=== PATIENT | female | born 1965 | race Caucasian/White ===

== ENCOUNTER → 2021-12-27 10:21 | Outpatient (BNVA) | payer SELFPAY | PROVIDERS: Visit Provider Nurse Practitioner Family | DX: M79.89 Other specified soft tissue disorders (principal); S99.922A Unspecified injury of left foot, initial encounter; X58.XXXA Exposure to other specified factors, initial encounter | CPT/HCPCS: 73630; 80053; 85025 ==

== ENCOUNTER 2022-02-27 12:18 | Emergency (ER) | payer SELFPAY ==
[2022-02-27 14:16] VITALS: BP 135/78; PULSE 84; RESP 15; TEMP 36.7; O2SAT 97
--- NOTE | 2022-02-27 15:33 | XRR_ITS ---
PROCEDURE INFORMATION: Exam: XR Left Foot Exam date and time: 02/27/2022 4:19 PM Age: 56 years old Clinical indication: Injury or trauma; Other: History--palet fell on patient's foot 4 months ago; Blunt trauma; Left; Additional info: Wound TECHNIQUE: Imaging protocol: Radiologic exam of the Left foot. Views: 3 or more views. COMPARISON: CR XR foot LT min 3V* [id number] 12/27/2021 10:21 AM FINDINGS: Bones/joints: Small calcaneal enthesophytes. Mild diffuse DJD. No acute fracture or foreign body noted. Unchanged old deformity at base of 1st distal phalanx. Soft tissues: Normal. XR/XR foot LT min 3V* [id number] IMPRESSION: No acute findings.
--- NOTE | 2022-02-27 17:18 | W.ED.EXTPRO ---
HPI - Extremity Problem General: Chief complaint: Extremity Problem,Nontraumatic Stated complaint: left foot pain, possible infection Time Seen by Provider: 02/27/22 15:14 History of Present Illness: Patient is a 56-year-old female that presents to the emergency department with complaints of left foot pain. Onset of symptoms approximately 3 months ago when she dropped a pallet on her foot. Since that time she notes infectious process started and she has taken multiple antibiotics that she has prescribed herself. She is obtaining these prescriptions from a feed store. She reports she has been taking cephalexin, Cipro, and azithromycin. Since erythema, swelling, pain has all increased. She is swollen and has some erythema and warmth to the skin. She has a open wound over the fourth metatarsal bone. She states she has been opening the wound to relieve pressure in her foot. She has been doing this with a straight blade Associated symptoms: Deny chest pain, fever(s) or rash Review of Systems General: Reports: 10 or more systems reviewed and unremarkable except in HPI and below Const: Denies: fever(s), chills, change in appetite, change in weight, fatigue or malaise Eyes: Denies: change in vision, eye discomfort, eye discharge or eye redness ENMT: Denies: throat pain, enlarged tonsils, odynophagia, hoarseness, ear or mastoid pain, ear discharge, change in hearing, tinnitus, nasal discharge, nasal congestion, post nasal drip or sinus pain Card: Denies: chest pain, palpitations, irregular heart rhythm, edema, dyspnea on exertion, orthopnea or leg pain with exertion Resp: Denies: dyspnea, productive cough, non-productive cough, wheezing, stridor or chest congestion GI: Denies: abdominal pain, nausea, vomiting, dysphagia, diarrhea, constipation, bloating, GI cramping or hematochezia : Denies: flank pain, difficulty voiding, dysuria, urinary frequency, urinary urgency, urinary hesitancy, oliguria or hematuria Musc: Denies: neck pain, back pain, extremity pain, joint pain, joint swelling, joint redness, joint warmth or muscle weakness Skin/Breast: Denies: rash, pruritus, erythema, photosensitivity or new lesions Neuro: Denies: headache(s), numbness in extremities, weakness in extremities, sensory changes, lack of coordination, difficulty walking, frequent falls, dizziness, confusion, Slurred speech present, difficulty communicating thoughts, seizure-like activity or involuntary movements Endo: Denies: polyuria, polydipsia or tired all the time Malcom/Lymph: Denies: easy bruising or easy bleeding PFSH ED PFSH: Social History Smoking and tobacco status: current every day smoker Second hand smoke exposure: No Smoking risk assessment/counseling performed?: No Alcohol intake: never Desire information about alcohol rehabilitation?: No Counseling given: No Desire information about substance/drug rehabilitation?: No Counseling given: No Adopted: No Caregiver/support person: No Lives independently: Yes Household members: spouse Housing: House Marital status: Single Number of children: 2 service: No Current occupational status: employed History of recent travel: No Physical Exam Const: COMMON NORMALS: no acute distress, average body habitus, patient oriented x3, no limitations, healthy appearing, alert and well nourished GENERAL APPEARANCE: cooperative, comfortable and well developed; not in distress and not anxious ORIENTATION/CONSCIOUSNESS: Yes awake, Yes oriented to person, Yes oriented to place and Yes oriented to time HENMT: COMMON NORMALS: normocephalic, atraumatic, hearing grossly normal bilaterally, external ears normal, EAC's normal, TM's normal bilaterally, Normal external nose present and Normal nasal mucous membranes and turbinates present HEAD & SCALP: normal to inspection, normocephalic and atraumatic FACE & SINUS: normal facial exam and face symmetric NOSE: Normal external nose present, Normal nares present and Normal nasal mucous membranes and turbinates present GENERAL EAR: hearing not grossly impaired EXTERNAL EAR: Yes external ears normal and Yes no periauricular adenopathy EXTERNAL AUDITORY CANAL: EAC's normal TYMPANIC MEMBRANE: TM's normal bilaterally MOUTH: Normal oral and palatal mucosa present, lip normal, tongue normal and Normal salivary glands and ducts present THROAT: posterior oropharynx normal, tonsils normal and uvula midline Eye: COMMON NORMALS: Equal, round and reactive pupils present, EOMs intact bilaterally, conjunctivae normal, no scleral icterus and no papilledema GENERAL EYE: appearance normal, both eyes and all related structures ALIGNMENT: Yes alignment normal PERIORBITAL: periorbital findings normal EYELID: eyelids normal CONJUNCTIVA: Yes conjunctivae normal PUPIL: Yes Equal, round and reactive pupils present DIRECT OPHTHALMOSCOPY: Yes no papilledema Neck/C-Spine: COMMON NORMALS: full ROM, supple, no meningeal signs and no JVD GENERAL: Yes normal visual inspection CERVICAL SPINE: Yes cervical ROM normal Lymph: LYMPHATIC: no lymphadenopathy noted Chest: COMMONS NORMALS: normal inspection of the chest Breast/axilla inspection: Yes no chest deformity, asymmetry, normal contours, no nodules, masses, tenderness Resp: COMMON NORMALS: normal respiratory effort, No retractions, No use of accessory muscles and clear to auscultation bilaterally EFFORT & INSPECTION: Yes able to speak in complete sentences, Yes symmetric chest movement, No abnormal respiratory pattern, No tachypneic and No respiratory distress AUSCULTATION: clear to auscultation bilaterally Cardio: COMMON NORMALS: no JVD, regular rate, regular rhythm and Peripheral pulses 2+ throughout RATE: regular rate RHYTHM: regular rhythm PERIPHERAL PULSES: Peripheral pulses 2+ throughout GI: COMMON NORMALS: Normal to inspection, nondistended, normoactive bowel sounds present, Soft to palpation and non-tender INSPECTION: Yes normal to inspection PALPATION: Yes Soft to palpation : COMMON NORMALS: Yes no CVA tenderness BLADDER/KIDNEY EXAM: Yes no CVA tenderness and Yes CVA tenderness Back/Pelvis: COMMON NORMALS: no CVA tenderness, thoracic and lumbar spine normal to inspection, no thoracic nor lumbar tenderness, thoraco-lumbar ROM normal and straight leg raise negative bilaterally GENERAL BACK: Yes CVA tenderness and No ecchymosis THORACIC SPINE/UPPER BACK: Yes normal to inspection LUMBAR SPINE/LOWER BACK: Yes normal to inspection and Yes straight leg raise negative bilaterally Extremity: COMMON NORMALS: normal to inspection, full ROM and capillary refill normal NARRATIVE EXTREMITY EXAM: Left lower extremity: Skin is dirty erythematous and warm. Edema present. Patient is able to dorsiflex plantarflex the foot Able to dorsiflex great toe Sensation intact light touch medial, lateral, dorsal, plantar surface of the foot and first webspace DP pulses palpable and cap refills less than 3 seconds Patient reports pain with bearing. GENERAL: Yes normal exam except as noted Neuro: COMMON NORMALS: patient oriented x3 SENSORIUM/ORIENTATION: Yes alert, Yes oriented to person, Yes oriented to place and Yes oriented to time MENINGEAL SIGNS: Yes no meningeal signs Psych: COMMON NORMALS: mental status grossly normal, Normal thought process present, cooperative, normal affect, speech normal and activity/motor behavior normal SPEECH: Yes normal speech THOUGHT PROCESS: Normal thought process present Skin: COMMON NORMALS: no rashes or lesions noted, no wounds, turgor normal, no jaundice, no petechiae and no mottling GENERAL SKIN EXAM: no rashes or lesions noted and turgor normal Course Vital Signs: Vital signs: Vital Signs Temperature 98.1 F 02/27/22 14:16 Pulse Rate 84 02/27/22 14:16 Respiratory Rate 15 02/27/22 14:16 Blood Pressure 135/78 02/27/22 14:16 Pulse Oximetry 97 02/27/22 14:16 Oxygen Delivery Me thod 02/27/22 14:16 MDM - Extremity (Nontraumatic) Medical Decision Making Ricky decision making?patient was evaluated in the emergency department. Has had history of foot trauma. Was evaluated initially and no fractures were identified. Patient reports that she developed an infection back in November or December. She is taken multiple antibiotics on her own. Her differential diagnosis would include open fracture, fracture, cellulitis, abscess, osteomyelitis. Patient is undergone XR imaging of her foot here in the emergency department and no acute findings are present. I did begin to antibiotics?I started with IV cefazolin. Patient will go home on doxycycline. Patient is given instructions to keep her foot clean and dry. She is to wash twice daily. She is to wear clean socks. Patient is to obtain primary care services and to return here as needed for new, concerning, worsening symptoms. Lab Data Radiology Impressions Foot X-Ray 02/27/22 15:33 IMPRESSION: No acute findings. Imaging Data Xray Ortho: My impression: XR left foot reveals no acute findings. Discharge Plan Discharge Patient Disposition: Home Clinical Impression: Cellulitis Condition: Stable Prescriptions: New doxycycline hyclate 100 mg tablet 100 mg PO BID 7 Days Qty: 14 0RF No Action cephalexin 500 mg capsule 500 mg PO TID Qty: 21 0RF Discharge Orders: Discharge ED (Routine); Ordered 02/27/22 Ordered By: Lilly Rosario Referrals: Danyelle Alfaro FNP-C [Primary Care Provider] - Discharge Diet: Advance as tolerated Discharge Activity: Resume usual activity Patient Instructions: Opioid Safety, Pain Management, Cefazolin (By injection), Doxycycline (By mouth), Cellulitis (ED) Activity Restrictions/Additional Instructions: Please return to the emergency department for new, concerning, worsening symptoms I want you to wash her feet twice a day Wear clean socks Elevate the extremity to relieve some of the inflammation Ibuprofen for inflammation Ice for inflammation antibiotics?doxycycline only. Do not take other medications that are not prescribed by a medical provider. Establish primary care Coding Level of Care Code ED Button Sawyer for Janelleg Fwd History Expanded Problem Focused Exam Expanded Problem Focused Medical Decision Making Low Complexity
[2022-02-27] MEDS: ceFAZolin 1,000 MG in sodium chloride 0.9% (plus) 50 ML 100 MG IV (17:41)
[2022-02-27 18:19] VITALS: BP 113/78; PULSE 76; RESP 14; O2SAT 96
== END 2022-02-27 18:14 | disposition home or self-care (01) ==
PROVIDERS: Emergency Provider Nurse Practitioner; PCP Nurse Practitioner Family
DX: L03.116 Cellulitis of left lower limb (principal); F17.210 Nicotine dependence, cigarettes, uncomplicated
CPT/HCPCS: 73630; 96365; 99284; J0690

== ENCOUNTER 2022-03-03 11:36 | Emergency (ER) | payer SELFPAY ==
[2022-03-03 11:44] VITALS: BP 127/70; PULSE 77; RESP 18; TEMP 36.6; O2SAT 98; BMI 22.4
[2022-03-03 11:48] VITALS: PULSE 74; RESP 16; O2SAT 96
--- NOTE | 2022-03-03 12:15 | XR_ITS ---
WS: [id number] Left foot, 3 views, 03/03/2022 Clinical Data: concern for osteo Comparison: Left foot, 02/27/2022 Findings: No fractures or dislocations are seen. No bone destruction or erosion is noted. The joint spaces and soft tissues are normal. The deformity of the left first toe distal phalanx remains the same. There is a plantar spur and an A chilles spur. XR/XR foot LT min 3V* [id number] Impression: Negative left foot.
--- NOTE | 2022-03-03 12:21 | ED_ITS ---
HPI - Skin/Abscess/Foreign Bdy General: Chief complaint: Skin/Abscess/Foreign Body Stated complaint: left foot infection, not improving Time Seen by Provider: 03/03/22 11:52 History of Present Illness: Patient comes in with redness, swelling, pain of her left foot. States that she dropped a pallet on it a couple months ago and has been dealing with infection off and on since then. States that she has been on antibiotics for different times including Bactrim, Keflex, doxycycline, and amoxicillin. States that she was seen here 4 days ago at which time she had an x-ray and was started on doxycycline. Associated symptoms: Deny fever(s), nausea or vomiting Review of Systems Const: Denies: fever(s) or body aches Eyes: Denies: change in vision or blurry vision ENMT: Denies: throat pain or odynophagia Card: Denies: chest pain or palpitations Resp: Denies: dyspnea or productive cough GI: Denies: abdominal pain, nausea or vomiting : Denies: flank pain or dysuria Musc: Denies: neck pain or back pain Skin/Breast: Denies: rash or pruritus Neuro: Denies: headache(s) or numbness in extremities Psych: Denies: anxiety or change in appetite Endo: Denies: polyuria or excessive sweating PFSH ED 2 PFSH: Social History Smoking and tobacco status: current every day smoker Second hand smoke exposure: No Smoking risk assessment/counseling performed?: No Alcohol intake: never Desire information about alcohol rehabilitation?: No Counseling given: No Desire information about substance/drug rehabilitation?: No Counseling given: No Adopted: No Caregiver/support person: No Lives independently: Yes Household members: spouse Housing: House Marital status: Single Number of children: 2 service: No Current occupational status: employed History of recent travel: No Physical Exam Const: COMMON NORMALS: no acute distress, patient oriented x3, healthy appearing and alert HENMT: COMMON NORMALS: normocephalic and atraumatic HEAD & SCALP: normocephalic and atraumatic Eye: COMMON NORMALS: Equal, round and reactive pupils present and EOMs intact bilaterally PUPIL: Yes Equal, round and reactive pupils present Neck/C-Spine: COMMON NORMALS: full ROM and supple Resp: COMMON NORMALS: normal respiratory effort, No retractions and No use of accessory muscles Cardio: COMMON NORMALS: regular rate and regular rhythm RATE: regular rate RHYTHM: regular rhythm GI: COMMON NORMALS: Normal to inspection, nondistended, normoactive bowel sounds present, Soft to palpation and non-tender PALPATION: Yes Soft to palpation Back/Pelvis: COMMON NORMALS: thoracic and lumbar spine normal to inspection and no thoracic nor lumbar tenderness Extremity: COMMON NORMALS: full ROM OTHER: healing ulcerating wound on the top of her left foot. She has discoloration and erythema that is hot to touch and swelling of her left foot extending up to her ankle. Neuro: COMMON NORMALS: patient oriented x3 SENSORIUM/ORIENTATION: Yes alert Psych: COMMON NORMALS: mental status grossly normal and cooperative Course Vital Signs: Vital signs: Vital Signs Temperature 98 F 03/03/22 11:44 Pulse Rate 77 03/03/22 11:44 Respiratory Rate 18 03/03/22 11:44 Blood Pressure 127/70 03/03/22 11:44 Pulse Oximetry 98 03/03/22 11:44 Oxygen Delivery Me thod 03/03/22 11:44 MDM - Skin/Abscess/Foreign Bdy Medicial Decision Making Patient comes in with redness, swelling, pain of her left foot. States that she dropped a pallet on it a couple months ago and has been dealing with infection off and on since then. States that she has been on antibiotics for different times including Bactrim, Keflex, doxycycline, and amoxicillin. States that she was seen here 4 days ago at which time she had an x-ray and was started on doxycycline. On physical exam she has a healing ulcerating wound on the top of her left foot. She has discoloration and erythema that is hot to touch and swelling of her left foot extending up to her ankle. She denies any fever, or other symptoms. We will check labs, x-ray, and reassess. On reassessment I talked to the patient about the test results. Her vital signs and her labs are unremarkable. Given that she will occasionally stick a needle in to pop which she feels like is hematoma under the skin I wonder if this is why it keeps getting infected. I talked to her about not poking any foreign bodies into the skin. We will place her on Bactrim double strength 2 tablets twice a day as well as cephalexin together for 10 days. Will discharge with precautions to return for worsening or changing symptoms. Lab Data 03/03/22 12:50 03/03/22 12:50 Radiology Impressions Foot X-Ray 03/03/22 12:15 Impression: Negative left foot. Laboratory Results WBC 5.7 10^3/uL (4.0-10.0) 03/03/22 12:50 RBC 3.98 10^6/uL (4.1-5.3) L 03/03/22 12:50 Hgb 13.1 g/dL (11.5-15.3) 03/03/22 12:50 Hct 38.7 % (37.0-47.0) 03/03/22 12:50 MCV 97.2 fl (81-99) 03/03/22 12:50 MCH 32.9 pg (28.0-34.0) 03/03/22 12:50 MCHC 33.9 g/dL (30.0-36.0) 03/03/22 12:50 RDW 11.9 % (12.1-15.1) L 03/03/22 12:50 Plt Count 243 10^3/cmm (130-400) 03/03/22 12:50 MPV 9.7 fL (7.4-10.4) 03/03/22 12:50 Neut % (Auto) 62.5 % 03/03/22 12:50 Lymph % (Auto) 27.8 % 03/03/22 12:50 Leake % (Auto) 5.6 % 03/03/22 12:50 Eos % (Auto) 3.2 % 03/03/22 12:50 Baso % (Auto) 0.7 % 03/03/22 12:50 Neut # (Auto) 3.56 10^3/uL (1.8-7.7) 03/03/22 12:50 Lymph # (Auto) 1.6 10^3/uL (0.8-4.8) 03/03/22 12:50 Leake # (Auto) 0.3 10^3/uL (0.2-0.9) 03/03/22 12:50 Eos # (Auto) 0.2 10^3/uL (0.0-0.8) 03/03/22 12:50 Baso # (Auto) 0.0 10^3/uL (0.0-0.1) 03/03/22 12:50 Nucleated RBC % (auto) 0 % 03/03/22 12:50 Nucleated RBCs # 0.0 /100WBC 03/03/22 12:50 Sodium 138 mmol/L (136-145) 03/03/22 12:50 Potassium 3.9 mmol/L (3.5-5.1) 03/03/22 12:50 Chloride 102 mmol/L (98-107) 03/03/22 12:50 Carbon Dioxide 28 mmol/L (22-29) 03/03/22 12:50 Anion Gap 11.9 (5-19) 03/03/22 12:50 BUN 6 mg/dL (6-20) 03/03/22 12:50 Creatinine 0.6 mg/dL (0.5-0.9) 03/03/22 12:50 GFR Calculation 103.0 mL/min (90-130) 03/03/22 12:50 Glucose 101 mg/dL (65-115) 03/03/22 12:50 Calculated Osmolality 284 mOsm/kg (285-295) L 03/03/22 12:50 Lactate 1.1 mmol/L (0.5-2.2) 03/03/22 12:50 Calcium 9.6 mg/dL (8.5-10.5) 03/03/22 12:50 Total Bilirubin 0.2 mg/dL (0.15-1.2) 03/03/22 12:50 AST 17 U/L (0-32) 03/03/22 12:50 ALT 12 U/L (0-33) 03/03/22 12:50 Alkaline Phosphatase 89 U/L (35-105) 03/03/22 12:50 Total Protein 7.3 g/dL (6.6-8.7) 03/03/22 12:50 Albumin 4.3 g/dL (3.5-5.2) 03/03/22 12:50 Globulin 3.0 g/dL (1.3-4.6) 03/03/22 12:50 Discharge Plan Discharge Patient Disposition: Home Clinical Impression: Cellulitis Condition: Stable Prescriptions: New Bactrim DS 800-160 mg tablet 2 tab PO DAILY 10 Days Qty: 40 0RF cephalexin 500 mg capsule 500 mg PO Q6H 10 Days Qty: 40 0RF No Action cephalexin 500 mg capsule 500 mg PO TID Qty: 21 0RF doxycycline hyclate 100 mg tablet 100 mg PO BID 7 Days Qty: 14 0RF Discharge Orders: Discharge ED (Routine); Ordered 03/03/22 Ordered By: Guru Whitaker Referrals: Danyelle Alfaro FNP-C [Primary Care Provider] - Patient Instructions: Cellulitis Coding Level of Care Code ED Board Lining Machine Operator for Chg Fwd Exam Comprehensive
[2022-03-03 13:00] VITALS: BP 93/53; PULSE 59; RESP 16; O2SAT 97
[2022-03-03 13:16] LABS: Basophils % 0.7 %; Eosinophils # 0.2 10^3/uL (0.0-0.8); Eosinophils % 3.2 %; Hematocrit 38.7 % (37.0-47.0); Hemoglobin 13.1 g/dL (11.5-15.3); Lymphocytes # 1.6 10^3/uL (0.8-4.8); Lymphocytes % 27.8 %; Mean Corpuscular HGB Conc 33.9 g/dL (30.0-36.0); Mean Corpuscular Hemoglobin 32.9 pg (28.0-34.0); Mean Corpuscular Volume 97.2 fl (81-99); Mean Platelet Volume 9.7 fL (7.4-10.4); Monocytes # 0.3 10^3/uL (0.2-0.9); Monocytes % 5.6 %; Neutrophils # 3.56 10^3/uL (1.8-7.7); Neutrophils % 62.5 %; Nucleated Red Blood Cells % 0 %; Platelet Count 243 10^3/cmm (130-400); Red Blood Count 3.98 10^6/uL (4.1-5.3); Red Cell Distribution Width 11.9 % (12.1-15.1); White Blood Count 5.7 10^3/uL (4.0-10.0)
[2022-03-03 13:20] LABS: Alanine Aminotransferase 12 U/L (0-33); Albumin Level 4.3 g/dL (3.5-5.2); Alkaline Phosphatase 89 U/L (35-105); Anion Gap 11.9 (5-19); Aspartate Amino Transferase 17 U/L (0-32); Blood Urea Nitrogen 6 mg/dL (6-20); Calcium 9.6 mg/dL (8.5-10.5); Carbon Dioxide 28 mmol/L (22-29); Chloride 102 mmol/L (98-107); Glucose 101 mg/dL (65-115); Osmolality Calculated 284 mOsm/kg (285-295); Potassium 3.9 mmol/L (3.5-5.1); Sodium 138 mmol/L (136-145); Total Bilirubin 0.2 mg/dL (0.15-1.2); Total Protein 7.3 g/dL (6.6-8.7)
[2022-03-03 13:21] LABS: Lactate (Lactic Acid level) 1.1 mmol/L (0.5-2.2)
[2022-03-03 13:48] VITALS: BP 108/65; PULSE 54; RESP 16; O2SAT 99
[2022-03-03 14:46] VITALS: BP 93/59; PULSE 51; RESP 16; O2SAT 98
== END 2022-03-03 14:40 | disposition home or self-care (01) ==
PROVIDERS: Emergency Provider Emergency Medicine; PCP Nurse Practitioner Family
DX: L03.116 Cellulitis of left lower limb (principal); F17.210 Nicotine dependence, cigarettes, uncomplicated
CPT/HCPCS: 36415; 73630; 80053; 83605; 85025; 87040; 99284

== ENCOUNTER 2022-09-07 12:16 | Inpatient (IN) | payer MEDICAID, SELFPAY ==
[2022-09-07 12:22] VITALS: BP 112/59; PULSE 62; RESP 18; TEMP 36.6; O2SAT 97; BMI 21.8
--- NOTE | 2022-09-07 12:23 | XRR_ITS ---
PROCEDURE INFORMATION: Exam: XR Left Hip Exam date and time: 09/07/2022 12:42 PM Age: 57 years old Clinical indication: Injury or trauma; Fall; Blunt trauma (contusions or hematomas); Left; Hip; Additional info: Fall, pain TECHNIQUE: Imaging protocol: Radiologic exam of the left hip. Views: 2 or 3 views hip with pelvis when performed. COMPARISON: No relevant prior studies available. FINDINGS: Bones/joints: Unremarkable. No acute fracture. Soft tissues: Unremarkable. XR/XR hip LT 2-3V wo/w pel* [id number] IMPRESSION: No acute findings.
[2022-09-07] MEDS: fentaNYL 50 mcg/mL INJ 2mL IVP (12:35)
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
--- NOTE | 2022-09-07 13:27 | CT_ITS ---
WS: [id number] NONCONTRAST CT LEFT HIP TECHNIQUE: Noncontrast CT LEFT hip with coronal and sagittal reformatted images. CLINICAL INFORMATION: fall, pain, no visible fracture on plain film COMPARISON: None. DLP: 469.[address] scans at [facility] use at least one of these dose optimization techniques: automated e xposure control; mA and/or kV adjustment per patient size (includes targeted exams where dose is matc hed to clinical indication); or iterative reconstruction. FINDINGS: Nondisplaced complete transcervical LEFT femoral neck fracture extending into the subcapital femoral neck. No significant displacement. No dislocation. Acetabulum is normal in appearance. Normal pubic r ami. Small joint effusion. LEFT superior and inferior pubic rami appear normal. Normal visualized sig moid colon. Subcutaneous edema in the LEFT gluteus. CT/CT hip LT wo con* [id number] IMPRESSION: 1. Acute transcervical and subcapital LEFT femoral neck fracture with no signi ficant displacement. No dislocation. 2. Acetabulum is normal in appearance. 3. Pubic rami appear intact. 4. Small joint effusion with soft tissue edema. Notified Shoshana Sylvester MD at 09/07/2022 2:07 PM.
--- NOTE | 2022-09-07 15:38 | ECG_ITS ---
[facility] Test Date: 2022-09-07 Pat Name: Emma Cabrales Department: Room: 276 Gender: Female Jigmaker: : 1965 Requested By: Shoshana Hess Order Number: [id number] Nirmal MD: Cory Catalan M.D. Measurements Intervals Star Rate: 53 P: 74 CA: 194 QRS: 78 QRSD: 122 T: 63 QT: 485 QTc: 457 Interpretive Statements SINUS BRADYCARDIA POSSIBLE LEFT ATRIAL ENLARGEMENT [-0.1mV P-WAVE IN V1/V2] POSSIBLE RIGHT VENTRICULAR CONDUCTION DELAY [RSR (QR) IN V1/V2] No previous ECG available for comparison Electronically Signed On 09-07-2022 15:50:37 CDT by Cory Catalan M.D. [email or web address]
[2022-09-07 15:42] VITALS: BP 114/73; PULSE 60; RESP 18; O2SAT 98
[2022-09-07 16:47] VITALS: RESP 18
[2022-09-07 16:47] LABS: Basophils % 0.5 %; Eosinophils # 0.1 10^3/uL (0.0-0.8); Eosinophils % 0.7 %; Hematocrit 36.4 % (37.0-47.0); Lymphocytes # 1.4 10^3/uL (0.8-4.8); Lymphocytes % 16.6 %; Mean Corpuscular Hemoglobin 32.4 pg (28.0-34.0); Mean Corpuscular Volume 98.4 fl (81-99); Mean Platelet Volume 9.7 fL (7.4-10.4); Monocytes # 0.8 10^3/uL (0.2-0.9); Monocytes % 8.8 %; Neutrophils # 6.33 10^3/uL (1.8-7.7); Neutrophils % 73.2 %; Nucleated Red Blood Cells % 0 %; Platelet Count 183 10^3/cmm (130-400); Red Cell Distribution Width 12.7 % (12.1-15.1); White Blood Count 8.6 10^3/uL (4.0-10.0)
[2022-09-07] MEDS: morphine 4 mg/mL SDV 1 mL 2 MG IVP (16:47)
[2022-09-07 16:51] LABS: INR 1.01 (0.8-1.2)
[2022-09-07 16:56] LABS: Alanine Aminotransferase 10 U/L (0-33); Albumin Level 3.7 g/dL (3.5-5.2); Alkaline Phosphatase 76 U/L (35-105); Aspartate Amino Transferase 16 U/L (0-32); Blood Urea Nitrogen 8 mg/dL (6-20); Calcium 8.6 mg/dL (8.5-10.5); Carbon Dioxide 24 mmol/L (22-29); Chloride 105 mmol/L (98-107); Globulin 2.5 g/dL (1.3-4.6); Glomerular Filtration Rate 102.7 mL/min (90-130); Glucose 95 mg/dL (65-115); Osmolality Calculated 288 mOsm/kg (285-295); Sodium 140 mmol/L (136-145); Total Bilirubin 0.5 mg/dL (0.15-1.2); Total Protein 6.2 g/dL (6.6-8.7)
--- NOTE | 2022-09-07 17:00 | XRR_ITS ---
PROCEDURE INFORMATION: Exam: XR Chest Exam date and time: 09/07/2022 5:06 PM Age: 57 years old Clinical indication: Injury or trauma; Fall; Additional info: Preop TECHNIQUE: Imaging protocol: Radiologic exam of the chest. Views: 1 view. COMPARISON: No relevant prior studies available. FINDINGS: Lungs: Unremarkable. No consolidation. Pleural spaces: Unremarkable. No pleural effusion. No pneumothorax. Heart/Mediastinum: Unremarkable. No cardiomegaly. Bones/joints: Suspect old healed right clavicular fracture. No acute findings. XR/XR chest 1V portable [id number] IMPRESSION: No acute findings.
--- NOTE | 2022-09-07 17:07 | PM.HP ---
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 [place] immediate pain with inability to stand or walk without sharp stabbing constant pain she presented to the emergency room where x-rays confirmed a left hip fracture. She was then admitted for more definitive management. She denies any neck or back pain states the pain is localized to her left hip that is constant sharp stabbing any movement makes it much worse rest gives her some temporary relief but she has had a lot of spasming pain as well. She does use tobacco. Has a shot of whiskey every night to allow her to sleep. She ranks the pain as 7 out of 10 on the pain scale. Review of Systems General: Reports: 10 or more systems reviewed and unremarkable except in HPI and below Const: Denies: fever(s) or chills Card: Denies: chest pain or palpitations Resp: Denies: productive cough GI: Denies: abdominal pain, nausea or vomiting : Denies: flank pain Musc: Reports: extremity swelling, joint pain, joint stiffness, limited range of motion and deformity Skin/Breast: Reports: nail changes and change in hair; Denies: rash or sores Neuro: Denies: numbness in extremities, sensory changes or difficulty walking Psych: Denies: suicidal ideation Malcom/Lymph: Denies: easy bruising Medications/Allergies Home Medications Medication Instructions Recorded Confirmed Last Taken Type calcium carbonate 333 mg-magnesium 3 tab PO DAILY 09/07/22 09/07/22 09/07/22 History oxide 133 mg-zinc gluc 5 mg tablet Allergies Allergy/AdvReac Type Severity Reaction Status Date / Time amoxicillin Allergy Unknown Verified 09/07/22 15:37 PFSH Acute PFSH: Social History Smoking and tobacco status: current every day smoker Second hand smoke exposure: No Smoking risk assessment/counseling performed?: No Alcohol intake: never Desire information about alcohol rehabilitation?: No Counseling given: No Substance/Drug Use: never Desire information about substance/drug rehabilitation?: No Counseling given: No Adopted: No Caregiver/support person: No Lives independently: Yes Household members: spouse Housing: House Marital status: Single Number of children: 2 service: No Current occupational status: employed Vitals/I&O/Wt Last Vital Signs Temp 97.9 F 09/07/22 12:22 Pulse 60 09/07/22 15:42 Resp 18 09/07/22 16:47 BP 114/73 09/07/22 15:42 Pulse Ox 98 09/07/22 15:42 O2 Del Method Room Air 09/07/22 15:42 Weight last 48 hrs Weight 170 lb Physical Exam Narrative: She is alert and orient x3 has a good general appearance normal mood and affect. Pain with palpation over the left hip she has positive logroll on the left negative on the right. She has good sensation light touch down both lower extremities skin is clear warm feet are warm with good cap refill. Dorsalis pedis and posterior tibial pulses are palpable. Calves are supple no medial thigh tenderness. She has no palpable pain in the lumbar thoracic or cervical region. She has full range of motion of both upper extremities at the shoulders elbows and wrist. Hands warm good cap refill. She does have some bruising to the right forearm from previous injury. Radial pulses are palpable. HENMT: COMMON NORMALS: normocephalic and atraumatic Resp: COMMON NORMALS: normal respiratory effort Cardio: COMMON NORMALS: regular rate and regular rhythm GI: COMMON NORMALS: Soft to palpation and non-tender : COMMON NORMALS: Yes no CVA tenderness Psych: COMMON NORMALS: mental status grossly normal and cooperative Urinary Catheter Management: Alves: Cath Placed During This Visit: yes Urinary Catheter Date of Insertion: 09/07/22 Urinary Catheter Time of Insertion: 15:38 Data 09/07/22 16:30 09/07/22 16:30 A&P Assessment and plan (1) Fracture of femoral neck, left, closed: Discussed the radiographs with the patient. Discussed treatment options and she elects to proceed with surgical procedure for open reduction internal fixation left hip pinning. Discussed the risks and benefits of the procedure which include but not limited to bleeding infection nerve damage continued hip pain risk of avascular necrosis, risk of nonunion with nicotine use, risk of reaction anesthesia she wishes to proceed. Discussed this with Dr. Broussard agrees above-stated plan. More than 50% of the time spent with the patient today involved coordination of care, counseling and discussion of conservative versus surgical treatment options. Total amount of time spent with the patient was 32 minutes. (2) Nicotine dependence with current use: Attestations Medical Necessity Statement*: ORIF left hip tomorrow Coding Level of Care Code Acute Code for Chg Fwd Diagnoses Fracture of femoral neck, left, closed S72.002A Nicotine dependence with current use F17.200 Time Spent (min) 32
[2022-09-07 17:27] VITALS: RESP 16
[2022-09-07] MEDS: ondansetron 2 mg/ML SDV 2 mL 4 MG IVP (17:27)
[2022-09-07] MEDS: HYDROmorphone 1 mg/mL INJ 1 mL 0.2 MG IVP ×2 (17:27→20:22)
[2022-09-07] MEDS: diazePAM 5 mg Tablet PO (17:28)
[2022-09-07 20:00] VITALS: BP 104/59; PULSE 55; RESP 16; TEMP 37.1; O2SAT 98
[2022-09-07 20:22] VITALS: RESP 16
[2022-09-08] VITALS (22 sets, daily range): BP systolic 93–122; BP diastolic 43–84; PULSE 49–74; RESP 15–19; TEMP 36.1–37.1; O2SAT 92–100
--- NOTE | 2022-09-08 | XR_ITS ---
WS: [id number] XR hip LT 2-3V wo/w pel* [id number] REASON FOR EXAM: OR PIC, LEFT HIP PINNING FINDINGS: Long screw fixation of previously demonstrated mid femoral neck fracture. Fracture fragments are in good position and alignment. Surgical appliances are intact and in proper position and alignment. XR/XR hip LT 2-3V wo/w pel* [id number] IMPRESSION: Left hip fracture with fixation as above.
[2022-09-08] MEDS: HYDROmorphone 1 mg/mL INJ 1 mL 0.2 MG IVP ×2 (02:38→08:41)
[2022-09-08] MEDS: HYDROcodone-acetaminophen 5-325 mg Tablet PO ×2 (09:47→15:33)
--- NOTE | 2022-09-08 10:44 | W.PM.OPSUD ---
Surgery/Procedure H&P Update DATE OF PROCEDURE: September 08, 2022 DATE H&P PERFORMED: 09/07/22 H&P UPDATE INFORMATION: I have reviewed H&P completed within last 30 days, I have examined patient prior to procedure and No changes to prior documentation PREOP DIAGNOSIS: Left femoral neck fracture PLANNED PROCEDURE: Operation Date: 09/08/22 13:25 Proposed Procedures p Hip Screw(Left) - Mainor Marie DO
[2022-09-08] MEDS: sodium chloride 0.9% 1,000 ML 30 ML IV (12:38)
--- NOTE | 2022-09-08 13:15 | ANES.PREANE2 ---
Pre-Anesthetic Assessment Height/Weight: Height 1.88 m Weight 77.111 kg Temp Pulse Resp BP Pulse Ox O2 Del Method 97.6 F 50 L 16 93/54 97 Room Air 09/08/22 12:27 09/08/22 12:27 09/08/22 12:27 09/08/22 12:27 09/08/22 12:27 09/08/22 12:27 Preop Diagnosis: Left femoral neck fracture Operation Date: 09/08/22 13:25 Proposed Procedures p Hip Screw(Left) - Mainor Marie, Familial anesthetic complications: None Was Beta Jammie taken within 24 hours: N/A Was Clonidine taken within 24 hours: N/A Last intake: Intake Last Liquid Date 09/07/22 Last Liquid Time 23:30 Last Solid Date 09/07/22 Last Solid Time 19:00 Social Tobacco and No alcohol Exam alert, oriented x 3 and regular rate & rhythm Airway Submandibular: within normal limits Cervical ROM: within normal limits Mallampati: Class II Dentition: chipped Pulmonary Chronic Obstructive Pulmonary Disease CV/HEM Peripheral Vascular Disease Anesthetic Plan ASA status: 3 Anesthesia: General Medications/Allergies Home Medications Medication Instructions Recorded Confirmed Last Taken Type calcium carbonate 333 mg-magnesium 3 tab PO DAILY 09/07/22 09/07/22 09/07/22 History oxide 133 mg-zinc gluc 5 mg tablet Allergies Allergy/AdvReac Type Severity Reaction Status Date / Time amoxicillin Allergy Unknown Verified 09/07/22 15:37 Current Medications Generic Name Dose Route Start Last Admin Trade Name Freq PRN Reason Stop Dose Admin Hydrocodone Bitart/Acetaminophen 1 - 2 tab 09/07/22 16:28 09/08/22 09:47 Hydrocodone-Acetaminophen 5-325 Mg Tablet PO 1 tab Q4H PRN Administration MODERATE PAIN Hydromorphone HCl 0.2 mg 09/07/22 17:01 09/08/22 08:41 Hydromorphone 1 Mg/Ml Inj 1 Ml IVP 0.2 mg Q1H PRN Administration SEVERE PAIN Sodium Chloride 1,000 mls @ 30 mls/hr 09/08/22 12:30 09/08/22 12:38 Sodium Chloride 0.9% IV 09/09/22 12:29 30 mls/hr .Q24H BERNARD Administration Nicotine 1 patch 09/07/22 16:49 07/07/23 08:23 Nicotine 21 Mg Patch TRANSDERMA Not Given DAILY BERNARD Ondansetron HCl 4 mg 09/07/22 17:05 09/07/22 17:27 Ondansetron 2 Mg/Ml Sdv 2 Ml IVP 4 mg Q4H PRN Administration NAUSEA AND VOMITING PFSH Anesthesia Social History Smoking and tobacco status: current every day smoker Second hand smoke exposure: No Smoking risk assessment/counseling performed?: No Alcohol intake: never Desire information about alcohol rehabilitation?: No Counseling given: No Substance/Drug Use: never Desire information about substance/drug rehabilitation?: No Counseling given: No Adopted: No Caregiver/support person: No Lives independently: Yes Household members: spouse Housing: House Marital status: Single Number of children: 2 service: No Current occupational status: employed Data Anesthesia 09/07/22 16:30 09/07/22 16:30 Short CBC 09/07/22 Range/Units 16:30 WBC 8.6 (4.0-10.0) 10^3/uL Hgb 12.0 (11.5-15.3) g/dL Hct 36.4 L (37.0-47.0) % MCV 98.4 (81-99) fl Plt Count 183 (130-400) 10^3/cmm Neut % (Auto) 73.2 % Neut # (Auto) 6.33 (1.8-7.7) 10^3/uL BMP 09/07/22 16:30 Sodium 140 Potassium 4.0 Chloride 105 Carbon Dioxide 24 BUN 8 Creatinine 0.6 Glucose 95 Calcium 8.6 Liver Function 09/07/22 Range/Units 16:30 Total Bilirubin 0.5 (0.15-1.2) mg/dL AST 16 (0-32) U/L ALT 10 (0-33) U/L Alkaline Phosphatase 76 (35-105) U/L Albumin 3.7 (3.5-5.2) g/dL Coags 09/07/22 16:30 PT 13.60 INR 1.01 Cardiac Studies: No Data to Display
[2022-09-08] MEDS: clindamycin 300 MG/50 ML PREMIX 100 MG IV ×2 (13:30→21:30)
[2022-09-08] MEDS: clindamycin 600 MG/50 ML PREMIX 100 MG IV ×2 (13:30→22:03)
[2022-09-08] MEDS: acetaminophen 1,000 MG/100 ML PIGGYBACK 400 MG IV (14:13)
--- NOTE | 2022-09-08 15:00 | P.OP_ITS ---
Operative Report Date of procedure: September 08, 2022 Pre-op diagnosis: Preop Diagnosis Left femoral neck fracture Post-op diagnosis: same Procedure done: Closed reduction percutaneous pinning left femoral neck Surgeon: Mainor Marie Landscape Gardener: Dell Dorantes Landscape Gardener: The surgical manager, Dell Dorantes, PAC was needed for his expertise with fractures. He was important and necessary throughout the procedure to complete in a safe and timely manner. He assisted with patient positioning prepping and draping tissue retraction suctioning of the operative field protection of the critical structures and tissue closure Procedure: Closed reduction percutaneous pinning left femoral neck Patient brought to the operative suite after undergoing anesthesia was placed on the fracture table. All areas impingement were well-padded. Patient was prepped draped normal normal sterile fashion. C-arm was brought in and 3 wires were placed up into the femoral neck into the femoral head. Screws were measured appropriate length screws were placed. AP and lateral fluoroscopy ensure the screws and fracture were in good position. Wounds were irrigated and closed with Vicryl and jannette. Sterile dressings were applied patient was transferred to the PACU in stable condition.
--- NOTE | 2022-09-08 15:40 | ANE.PACU2 ---
Inpatient post-anesthesia follow up: Airway intact: Yes Vital signs: Temperature 97 F Pulse Rate 74 Respiratory Rate 16 Blood Pressure 122/43 Pulse Oximetry 96 Oxygen Delivery Me thod [ Room Air Current Rate & Del wesly] Oxygen Delivery Me thod Room Air Oxygen Flow Rate 8 Fraction of Inspir ed Oxygen Hydration adequate: Yes Nausea and vomiting: No Pain level: 3 Mental status: Baseline
[2022-09-09 00:54] VITALS: BP 104/64; PULSE 50; RESP 16; TEMP 36.4; O2SAT 96
[2022-09-09] MEDS: HYDROcodone-acetaminophen 5-325 mg Tablet PO (03:22)
[2022-09-09 05:00] VITALS: BP 114/70; PULSE 54; RESP 16; TEMP 37; O2SAT 96
[2022-09-09] MEDS: clindamycin 300 MG/50 ML PREMIX 100 MG IV (05:00)
[2022-09-09] MEDS: clindamycin 600 MG/50 ML PREMIX 100 MG IV (05:29)
--- NOTE | 2022-09-09 09:26 | PM.PN ---
Subjective Subjective: POD 1 Patient up walking the room having morning breakfast. Has mild left hip pain. Denies any shortness of breath, chest pain, headaches. Vitals/I&O/Wt Last Vital Signs Temp 98.6 F 09/09/22 05:00 Pulse 54 L 09/09/22 05:00 Resp 16 09/09/22 05:00 BP 114/70 09/09/22 05:00 Pulse Ox 96 09/09/22 05:00 O2 Del Method Room Air 09/08/22 18:06 O2 Flow Rate 8 09/08/22 14:35 09/08/22 09/09/22 09/09/22 22:59 06:59 14:59 Intake Total 930 / 1030 530 / 1560 290 / 290 Output Total 1500 / 2125 1000 / 3125 Balance -570 / -1095 -470 / -1565 290 / 290 Weight last 48 hrs Weight 170 lb Physical Exam Narrative: Patient is alert and orient x3 has good general appearance normal normal affect. Hip incision is healing nicely. There is no signs of erythema or drainage no signs of infection. Good motor strength throughout both lower extremities. Fires in all motor groups. Skin is clear warm, feet are warm with good cap refill in all digits. Normal sensation to light touch. Calves are supple, no medial thigh tenderness, negative Homans' sign. No palpable edema peripherally. Urinary Catheter Management: Alves: Cath Placed During This Visit: yes Reason for Continuing Indwelling Catheter: Not indwelling catheter Urinary Catheter Date of Insertion: 09/07/22 Urinary Catheter Time of Insertion: 15:38 Data 09/07/22 16:30 09/07/22 16:30 A&P Assessment and plan (1) Nicotine dependence with current use: Encouraged patient to pursue smoking cessation. Continue with a walker partial weightbearing to the left lower extremity. Encouraged her to take an in coated aspirin 325 mg 1 p.o. daily for DVT prophylaxis. Encouraged her to take the incentive spirometer at home for pulmonary toilet. We will see her back in the office in 1 to 2 weeks for staple removal. (2) Fracture of femoral neck, left, closed: Attestations Medical Necessity Statement*: Discharge home this morning Coding Level of Care Code Acute Code for [facility] Fwd Diagnoses Nicotine dependence with current use F17.200 Fracture of femoral neck, left, closed S72.002A
[2022-09-09] MEDS: aspirin 325 mg EC Tablet PO (09:29)
[2022-09-09 11:05] VITALS: BP 114/70; RESP 16; TEMP 37; O2SAT 96
--- NOTE | 2022-09-12 08:12 | PM.DCS ---
Discharge Providers Date of Admission: 09/07/22 15:22 Date of Discharge: September 09, 2022 Attending Provider at Admission: Mainor Marie DO Attending Provider at Discharge: Mainor Marie DO Primary Care Provider: NELDA Delvalle Diagnoses at Discharge Discharge Diagnosis (1) Nicotine dependence with current use: Status: Acute (2) Fracture of femoral neck, left, closed: Status: Acute Reason for Visit Reason for Visit: possible broken hip left Physical Exam Urinary Catheter Management: Alves: Cath Placed During This Visit: yes Reason for Continuing Indwelling Catheter: Not indwelling catheter Urinary Catheter Date of Insertion: 09/07/22 Urinary Catheter Time of Insertion: 15:38 Discharge Data Studies Completed and Pending Completed Studies During Hospitalization Category Date Time Status CT hip LT wo con* [id number] Stat Cat Scan 09/07/22 13:27 Completed CXRP [XR chest 1V portable [id number]] Urgent Exams 09/07/22 17:00 Completed XR hip LT 2-3V wo/w pel* [id number] Routine Exams 09/08/22 Completed XR hip LT 2-3V wo/w pel* [id number] Stat Exams 09/07/22 12:23 Completed Radiology Impressions Hip CT 09/07/22 13:27 IMPRESSION: 1. Acute transcervical and subcapital LEFT femoral neck fracture with no significant displacement. No dislocation. 2. Acetabulum is normal in appearance. 3. Pubic rami appear intact. 4. Small joint effusion with soft tissue edema. Notified Shoshana Sylvester MD at 09/07/2022 2:07 PM. Chest X-Ray 09/07/22 17:00 IMPRESSION: No acute findings. Hip/Pelvis X-Ray 09/08/22 00:00 IMPRESSION: Left hip fracture with fixation as above. Laboratory Results WBC 8.6 10^3/uL (4.0-10.0) 09/07/22 16:30 RBC 3.70 10^6/uL (4.1-5.3) L 09/07/22 16:30 Hgb 12.0 g/dL (11.5-15.3) 09/07/22 16:30 Hct 36.4 % (37.0-47.0) L 09/07/22 16:30 MCV 98.4 fl (81-99) 09/07/22 16:30 MCH 32.4 pg (28.0-34.0) 09/07/22 16:30 MCHC 33.0 g/dL (30.0-36.0) 09/07/22 16:30 RDW 12.7 % (12.1-15.1) 09/07/22 16:30 Plt Count 183 10^3/cmm (130-400) 09/07/22 16:30 MPV 9.7 fL (7.4-10.4) 09/07/22 16:30 Neut % (Auto) 73.2 % 09/07/22 16:30 Lymph % (Auto) 16.6 % 09/07/22 16:30 Burt % (Auto) 8.8 % 09/07/22 16:30 Eos % (Auto) 0.7 % 09/07/22 16:30 Baso % (Auto) 0.5 % 09/07/22 16:30 Neut # (Auto) 6.33 10^3/uL (1.8-7.7) 09/07/22 16:30 Lymph # (Auto) 1.4 10^3/uL (0.8-4.8) 09/07/22 16:30 Burt # (Auto) 0.8 10^3/uL (0.2-0.9) 09/07/22 16:30 Eos # (Auto) 0.1 10^3/uL (0.0-0.8) 09/07/22 16:30 Baso # (Auto) 0.0 10^3/uL (0.0-0.1) 09/07/22 16:30 Nucleated RBC % (auto) 0 % 09/07/22 16: Nucleated RBCs # 0.0 /100WBC 09/07/22 16:30 PT 13.60 SECONDS (12.1-14.9) 09/07/22 16: INR 1.01 (0.8-1.2) 09/07/22 16:30 Sodium 140 mmol/L (136-145) 09/07/22 16:30 Potassium 4.0 mmol/L (3.5-5.1) 09/07/22 16:30 Chloride 105 mmol/L (98-107) 09/07/22 16:30 Carbon Dioxide 24 mmol/L (22-29) 09/07/22 16:30 Anion Gap 15.0 (5-19) 09/07/22 16:30 BUN 8 mg/dL (6-20) 09/07/22 16:30 Creatinine 0.6 mg/dL (0.5-0.9) 09/07/22 16:30 GFR Calculation 102.7 mL/min (90-130) 09/07/22 16:30 Glucose 95 mg/dL (65-115) 09/07/22 16:30 Calculated Osmolality 288 mOsm/kg (285-295) 09/07/22 16:30 Calcium 8.6 mg/dL (8.5-10.5) 09/07/22 16:30 Total Bilirubin 0.5 mg/dL (0.15-1.2) 09/07/22 16:30 AST 16 U/L (0-32) 09/07/22 16:30 ALT 10 U/L (0-33) 09/07/22 16:30 Alkaline Phosphatase 76 U/L (35-105) 09/07/22 16:30 Total Protein 6.2 g/dL (6.6-8.7) L 09/07/22 16:30 Albumin 3.7 g/dL (3.5-5.2) 09/07/22 16:30 Globulin 2.5 g/dL (1.3-4.6) 09/07/22 16:30 Vitals Last Vital Signs Temp 98.6 F 09/09/22 11:05 Pulse 54 L 09/09/22 05:00 Resp 16 09/09/22 11:05 BP 114/70 09/09/22 11:05 Pulse Ox 96 09/09/22 11:05 O2 Del Method Room Air 09/08/22 18:06 O2 Flow Rate 8 09/08/22 14:35 Discharge Plan Discharge Patient Disposition: Home Condition: Stable Prescriptions: New hydrocodone-acetaminophen 5-325 mg Tablet 1 - 2 tab PO Q4H PRN (Reason: Postoperative pain) Qty: 40 0RF Continued calcium carb-mag ox-zinc gluc 333-133-5 mg Tablet 3 tab PO DAILY Discharge Orders: Discharge Order (Routine); Ordered 09/09/22 Ordered By: Dell Dorantes Referrals: Mainor Marie DO [Physician] - (Sent message to clinic.) Danyelle Alfaro FNP-C [Primary Care Provider] - (Sent message to clinic for a follow up appointment. ) Discharge Diet: Advance as tolerated Discharge Activity: Limit activity as instructed Patient Instructions: Hydrocodone/Acetaminophen (By mouth), Hip Fracture (GEN), ORIF of Hip Fracture (GEN), Opioid Safety Activity Restrictions/Additional Instructions: You are being discharged from the hospital today during which time you have been under the care of Dr Marie. You had a Left hip fracture. You were treated for this injury with hip pinning. You may resume you normal diet (including any special diets as directed by your primary doctor) as well as your home medications. You should follow up with you primary doctor if you have any questions regarding medication you took prior to your stay in the hospital. You may take your pain medication as prescribed. After the first few days, take your pain medication as needed. Do not drive or drink alcohol while taking your pain medication. Your injury may increase your risk of developing a blood clot,or DVT, in your arm or leg. This could potentially dislodge and travel to your lungs and become a life threatening condition called apulmonary embolus,or PE. You have been prescribed eliquis to be taken to prevent this. Frequent movement of the legs will also help prevent this from occurring. If you develop any new or worsening cough, chestpain, bloody sputum or shortness of breath, call 911 or go to the EmergencyRoom. Always keep your surgical incision/dressing clean and dry. If you experience increasing pain at your incision site, redness, swelling, increasing discharge, foul odors, or fevers (greater than 100.4), night sweats or chills you should call the office at the above number. If you feel this is an emergency you should be evaluated in the Emergency Department of a nearby hospital. Orthopedic Patient Instructions Summary: Weight Bearing: PWB Activity: as tolerated. Diet: regular. Wound Care: Keep dressing clean and dry. Change as needed Anticoagulation: Lovenox Pain Medication: Take only as needed. Ice, rest and elevation will be of great benefit. Please plan to follow-up adrianna Marie in 2 weeks. You will need to call the clinic [phone] to schedule. Do not hesitate to call the office with any questions or concerns. Discharge Attestations Time Spent in Discharge Care*: less than 30 min Quality Metrics Clinical Quality Measures [ No reported AMI, CVA or VTE this stay] Coding Level of Care Code Acute Code for Chg Fwd Diagnoses Nicotine dependence with current use F17.200 Fracture of femoral neck, left, closed S72.002A
== END 2022-09-09 10:58 | disposition home or self-care (01) | DRG 482 ==
LOC: ER 15:31 → MEDSURG 15:37
PROVIDERS: Admitting Provider Orthopaedic Surgery; Emergency Provider Emergency Medicine; PCP Nurse Practitioner Family; Visit Provider Orthopaedic Surgery
PROC: 0QH734Z Insertion of Internal Fixation Device into Left Upper Femur, Percutaneous Approach (ICD-10-PCS; CPT 27236; principal; 2022-09-08 13:25)
DX: S72.012A Unspecified intracapsular fracture of left femur, initial encounter for closed fracture (principal); W55.22XA Struck by cow, initial encounter; F17.200 Nicotine dependence, unspecified, uncomplicated
CPT/HCPCS: 36415; 51702; 71045; 73502; 73700; 76000; 80053; 85025; 85610; 93005; 96374; 97110; 97116; 97161; 97165; 99285; C1713; J0131; J1100; J1170; J2270; J2405; J2704; J3010; J3490; J7030

== ENCOUNTER → 2022-09-26 14:26 | Outpatient (BNVA) | payer MEDICAID, SELFPAY | PROVIDERS: PCP Nurse Practitioner Family; Visit Provider Physician Assistant | DX: S72.002A Fracture of unspecified part of neck of left femur, initial encounter for closed fracture (principal); X58.XXXA Exposure to other specified factors, initial encounter | CPT/HCPCS: 73502 ==

== ENCOUNTER → 2023-11-13 13:40 | Outpatient (BNVA) | payer MEDICAID, SELFPAY | PROVIDERS: PCP Nurse Practitioner Family; Visit Provider Nurse Practitioner Family | DX: M17.11 Unilateral primary osteoarthritis, right knee (principal); M25.861 Other specified joint disorders, right knee; M25.461 Effusion, right knee; M25.561 Pain in right knee | CPT/HCPCS: 73562 ==